=== PATIENT | male | born 1950 | race Two or more races ===

== ENCOUNTER → 2020-12-25 16:59 | Outpatient (CLI) | payer SELFPAY ==
--- NOTE | 2020-12-25 16:00 | PET_ITS ---
EXAMINATION: FDG PET-CT ? 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 COMPARISON EXAMINATION: None available INDEX LESION SIZE SUV INTERPRETATION Bilateral submental regions level I-B 5.8 x 4.5-cm (largest) (frame 263) 16.5 (max) Fulfills quantitative criteria for viable neoplasm Left lateral neck level III 9.6-mm (frame 255) 2.8 Fulfills quantitative criteria for viable neoplasm NON-INDEX LESION SIZE SUV INTERPRETATION Bilateral thoracic perihilum 2.0 (max) Quantitative criteria for viable neoplasm are not fulfilled TECHNIQUE: Following the intravenous administration of 11.68 mCi of F-18 deoxyglucose via the left forearm, multiplanar image acquisitions of the head, neck, chest, abdomen and pelvis to level of mid thigh, obtained at one hour post radiopharmaceutical administration contemporaneously interpreted with the current CT of the head, neck, chest, abdomen and pelvis, to level of mid thigh, dated 12/25/20 via coregistration reveals: BLOOD GLUCOSE LEVEL:?? 96 mg/dl?HEIGHT:?71 inches?WEIGHT: 202 lbs. FINDINGS: 1. Increased labeled GLUCOSE metabolism is observed in the bilateral submandibular regions involving levels I-B generating a calculated maximal standard uptake value of 16.5. The maximal axial diameter of the largest individual metabolic, morphologic abnormality on review of CT of the neck dated 12/25/20 is 5.8-cm (transverse) x 4.5-cm (AP). 2. There is an asymmetric increase in FDG distribution noted in the left lateral neck involving level III in a single nodular presentation. The calculated maximal standard uptake value is 2.8. The maximal axial diameter of the corresponding metabolic, morphologic abnormality on review of CT of the neck dated 12/25/20 is 9.6-mm (AP). 3. Mild increased tracer concentration is observed in the bilateral thoracic perihilum rendering a calculated maximal standard uptake value of 2.0. Quantitative criteria for viable neoplasm are not fulfilled. Prominent uptake is observed in the subcarinal mediastinum to the right of the midline which appears to represent visualization of the right atrial myocardial appendage. 4. Normal physiologic distribution of the radiopharmaceutical is apparent in the hepatic (2.7) and splenic parenchyma, both renal units, bladder and visualized intestinal tract. Symmetric glucose metabolism is evident in the occipital, frontal, parietal and temporal lobes of the cerebral cortex, as well as normal visualization of the basal ganglia and cerebellar hemispheres. Diffuse radiopharmaceutical concentration is noted in all four quadrants of the abdomen and pelvis. Asymmetric increased tracer uptake is defined in the right masseter musculature most consistent with physiologic tracer uptake. Pertinent CT findings are as follows: CHEST: There is atherosclerotic calcification defined in the thoracic aorta without evidence of dilatation-aneurysm formation. Coronary arterial calcification is observed. Bilateral subcentimeter axillary soft tissue densities are ametabolic. Scattered mediastinal soft tissue reveals no evidence of quantitatively significant increased FDG uptake. There are no parenchymal densities-nodules defined in the right and left hemithorax with discernible quantitatively significant increased FDG uptake. ABDOMEN AND PELVIS: There is atherosclerotic calcification defined in the abdominal aorta without evidence of dilatation-aneurysm formation. Pelvic arterial calcification is demonstrated. Right and left inguinal soft tissue densities reveal no evidence of increased tracer uptake. Calcified phlebolith formation is observed in the left lower hemipelvis. SKELETAL: Degenerative changes are noted in the cervical, thoracic and lumbar spine without evidence of increased radiopharmaceutical concentration. PET/PET/CT Tumor Base -Thigh Init IMPRESSION: 1. ABNORMAL EXAMINATION INDICATIVE OF MALIGNANT VIABLE NEOPLASM. 2. Increased FDG distribution noted in the bilateral submental regions fulfills quantitative criteria for malignant transformation. 3. Facilitated fluorine labeled glucose uptake manifest in the left lateral neck involving level III fulfills quantitative criteria for viable metastatic involvement. 4. The increase in radiopharmaceutical concentration noted in the bilateral thoracic perihilum does not fulfill quantitative criteria for viable neoplasia. (Mag et al, Journal of Clinical Oncology 16:2142, 1998). 5. No other quantitatively significant hypermetabolic abnormalities are noted. There is no definitive scintigraphic evidence of distant metastatic disease. Electronic Signature Rios Benitez D.O. Accurate Quantification of SUVs for this report are calculated using the exclusive [employer]. ([place]. Patent No. [id number]). Standardization and correction of the FDG SUV metric via [employer] technology allow for vendor non-specific objective quantitative examination comparison and optimization of the sensitivity and specificity of the FDG PET-CT examination. Electronically Signed: Rios Benitez DO at 21:53 EDT Tel , Service support ,
== END ==
PROVIDERS: PCP Family Medicine
DX: C44.42 Squamous cell carcinoma of skin of scalp and neck (principal)
CPT/HCPCS: 78815; A9552